=== PATIENT | male | born 1970 | race Caucasian/White ===

== ENCOUNTER → 2018-09-10 15:39 | Outpatient (CLI) | payer OTHER, SELFPAY ==
--- NOTE | 2018-09-10 15:42 | MR_ITS ---
MR shoulder LT wo con HISTORY:Left shoulder pain. Prior rotator cuff surgery, injury with pain and limited range of motion ITS.REASON: LEFT SHOULDER PAIN ORDERING PHYSICIAN: Art Arenas PATIENT AGE: 48 years Comparison: None TECHNIQUE: Standard multiplanar multiecho sequences are performed without contrast. FINDINGS: There are no previous exams available for comparison. There is acromioclavicular arthropathy with hypertrophic changes at the acromioclavicular joint and small amount of bone marrow edema at the AC joint. There is thickening of the supraspinatus tendon. A full-thickness tear is not identified. There is some increased T2 signal along the undersurface of supraspinatus tendon and distally which could represent a partial tear. The infraspinatus tendon appears intact. Bicipital tendon is in place. The subscapularis and teres minor tendons are intact. There does appear to be a tear of the mid and inferior aspect of the labrum. Osteoarthritic changes are present at the glenohumeral joint with subarticular cyst of the glenoid at 3:00. Artifact is present from a screw within the proximal humerus laterally at the base of the greater tuberosity IMPRESSION: 1. Acromioclavicular arthropathy with edema at the AC joint. 2. Tendinopathy/tendinosis of the supraspinatus tendon with possible partial tear. No evidence of full-thickness or complete tear. 3. There may be a tear of the anterior glenoid labrum inferiorly beginning from 3-6 o'clock region. MR arthrography could confirm if clinically desired. 4. Postsurgical changes with osteoarthritis of the glenohumeral joint
== END ==
PROVIDERS: Visit Provider Orthopaedic Surgery Adult Reconstructive Orthopaedic Surgery
DX: M75.122 Complete rotator cuff tear or rupture of left shoulder, not specified as traumatic (principal)
CPT/HCPCS: 73221

== ENCOUNTER 2018-11-08 08:30 | Outpatient (RCR) | payer OTHER, SELFPAY | END 2018-11-08 08:35 | disposition home or self-care (01) | LOC: PT 08:30 | PROVIDERS: Referring Provider Orthopaedic Surgery Adult Reconstructive Orthopaedic Surgery; Visit Provider Orthopaedic Surgery Adult Reconstructive Orthopaedic Surgery | DX: M25.512 Pain in left shoulder (principal) | CPT/HCPCS: 97010; 97033; 97110; 97140; 97163; 97164 ==

== ENCOUNTER 2019-05-27 08:30 | Outpatient (RCR) | payer OTHER, SELFPAY | END 2019-05-27 08:35 | disposition home or self-care (01) | LOC: PT 08:30 | PROVIDERS: Visit Provider Orthopaedic Surgery Adult Reconstructive Orthopaedic Surgery | DX: M75.102 Unspecified rotator cuff tear or rupture of left shoulder, not specified as traumatic (principal) | CPT/HCPCS: 97033; 97110; 97140; 97163; 97164 ==

== ENCOUNTER 2020-11-04 19:15 | Emergency (ER) | payer SELFPAY ==
[2020-11-04 19:15] VITALS: BP 138/93; PULSE 87; RESP 20; TEMP 36.6; O2SAT 96; BMI 29.3
[2020-11-04 19:35] VITALS: BP 138/93; PULSE 87; RESP 20; TEMP 36.6; O2SAT 96
--- NOTE | 2020-11-04 19:35 | HMH.EDUTC ---
[facility] [place] Disposition Clinical Impression: Abscess Cellulitis Qualifiers: Site of cellulitis: unspecified site Qualified Code(s): L03.90 - Cellulitis, unspecified Disposition: Home, Self-Care Condition on Discharge: Good Instructions: Trimethoprim/Sulfamethoxazole (Alternative Therapy), Cellulitis, Cephalexin, Mupirocin, DI for Skin Abscess Additional Instructions: *Start antibiotic(s) immediately and be sure to take as ordered for the FULL length of time although you may be feeling better or start to see improvement in the next 24-48 hours *Monitor closely. Outlined redness so that you can monitor easier. Follow up immediately for new or worsening symptoms including but not limited to redness, swelling, streaking from site fever or chills. *Warm compress 15 minutes 3-4 times day *Never squeeze or pop these on your own. Seek immediate medical attention next time this occurs *Monitor Temp. Tylenol every 4 hours as needed and ibuprofen every 6 hours as needed (as long as your primary care doctor has told you that it is ok to take both. or you are not allergic For fever, aches, pain. ER if no less that 101 despite Tylenol and ibuprofen Follow up with your family doctor/primary care physician in the next 48-72 hours if no improvement Follow up immediately if any worsening of redness or swelling Follow up in 48 hours for your wound culture result Straight to ER if any life threatening symptoms Prescriptions: Sulfamethoxazole/Trimethoprim [Bactrim DS tablet] 1 each PO BID 10 Days #20 tab Transmission Status: Pending to [email or web address] # cephALEXin [cephALEXin 500mg capsule*] 500 mg PO Q6H 10 Days #40 cap Transmission Status: Pending to [email or web address] # Mupirocin Calcium [Mupirocin 2% Cream 15gm] 1 applicatio TP TID 10 Days #1 tube Transmission Status: Pending to [email or web address] # Referrals: Provider,Referral, [Primary Care Provider] - Time of Disposition: 19:38 Medical Decision Making - Fredis Inquiry Pt receiving controlled substance: No Fredis was queried for this patient: No Vital Signs: 11/04/20 19:15 11/04/20 19:35 Temperature 97.8 F 97.8 F Temperature Source Oral Pulse Rate 87 Pulse Rate [Right Brachial] 87 Respiratory Rate 20 20 Blood Pressure 138/93 H Blood Pressure [Right Arm] 138/93 H Blood Pressure Mean [Right Arm] 108 Blood Pressure Source [Right Arm] Automatic Cuff Blood Pressure Position [Right Arm] Sitting 02 Sat by Pulse Oximetry 96 Oxygen Delivery Method Room Air Orders (Tests/Meds): ORDERS Category Date Time Status Wound Culture and Gram Stain Stat Micro 11/04/20 19:30 Ordered Medical Decision Narrative: Patient states that he has taken both Cephalexin and bactrim before without reaction or complications discount card printed for medication and patient educated to watch for streaks and worsening of redness and swelling and patient verbalized understanding [facility] [place] HPI - General Stated complaint: possible Spidle bite R Arm Time Seen by Provider: 11/04/20 19:20 Mode of Arrival: Ambulatory Source of Information: Patient Limitations: No Limitations Description of Symptoms (Recalled from Triage Doc. by RN): PATIENT C/O POSSIBLE SPIDER BITES X 2 TO RIGHT FOREARM. REDNESS, WARMTH AND SWELLING NOTED HEENT Symptoms (Recalled from RN notes): No Resp Symptoms (Recalled from RN notes): No Skin Symptoms (Recalled from RN notes): Yes MS Symptoms (Recalled from RN notes): No Functional Status (Recalled from RN notes): WNL - History of Present Illness Provider Complaint: Patient states that he noticed two areas on his right forearm that looked like spider bites States that he was outside playing with grandkids States he has been using peroxide and triple antibiotic ointment on it and it has continued to get worse States that tonight it was more red and swollen States that he tried to mash it and got pus and blood out of it but still having redness and swelling
--- NOTE | 2020-11-04 20:11 | PC.NURSE ---
PATIENT CALLED STATING PHARMACY WAS CLOSED. ADVISED BY Maycol BATES APRN TO RETURN TO [facility] TO GET FIRST DOSE ON ANTIBIOTICS TONIGHT.
--- NOTE | 2020-11-07 09:44 | PC.NURSE ---
attempted to call pt about positive mrsa results
== END 2020-11-04 19:40 | disposition home or self-care (01) ==
PROVIDERS: Emergency Provider Nurse Practitioner
DX: S50.861A Insect bite (nonvenomous) of right forearm, initial encounter (principal); L03.113 Cellulitis of right upper limb; Z88.5 Allergy status to narcotic agent; Z88.8 Allergy status to other drugs, medicaments and biological substances
CPT/HCPCS: 87070; 87077; 87186; 87205; 99202; G0463

== ENCOUNTER → 2020-11-04 20:23 | Outpatient (CLI) | payer SELFPAY ==
[2020-11-04 20:25] VITALS: BMI 29.3
== END ==
PROVIDERS: Visit Provider Nurse Practitioner
DX: L03.90 Cellulitis, unspecified (principal)

== ENCOUNTER → 2021-06-22 10:44 | Outpatient (CLI) | payer OTHER, SELFPAY ==
--- NOTE | 2021-06-22 11:02 | XR_ITS ---
FINAL REPORT CLINICAL HISTORY: L Shoulder Pain no recent injury , pain x 2 1/2 years FINDINGS: LEFT SHOULDER Three views demonstrate no acute fracture or dislocation. There are mild degenerative changes of the acromioclavicular and glenohumeral joints. The visualized bony structures are well aligned. No soft tissue abnormality is seen. IMPRESSION: Mild degenerative change as described. Reviewed, Interpreted and Dictated by Oscar Good III, MD Transcribed by Traci Lambert Authenticated by Oscar Good III, MD on 06/22/2021 12:21:08 PM [facility]
[2021-06-22 11:15] LABS: Basophils # 0.1 K/mm3 (0-0.2); Basophils % 1.7 % (0.1-2.0); Eosinophils # 0.1 K/mm3 (0.0-0.4); Eosinophils % 2.5 % (0.1-12.0); Hematocrit 51.3 % (42.0-52.0); Hemoglobin 17.5 g/dL (14.1-18.0); Lymphocytes # 1.3 K/mm3 (0.7-4.5); Lymphocytes % 27.1 % (10-50); Mean Corpuscular HGB Conc 34.2 g/dL (31.8-35.4); Mean Corpuscular Hemoglobin 30.2 pg (27.0-31.2); Mean Corpuscular Volume 88.3 fl (80-94); Mean Platelet Volume 7.8 fl (7.4-10.4); Monocytes # 0.4 K/mm3 (0.1-1.0); Monocytes % 8.4 % (1.7-9.3); Neutrophils # 2.9 K/mm3 (1.8-7.8); Neutrophils % 60.4 % (37.0-80.0); Platelet Count 251 K/mm3 (142-424); Red Blood Count 5.81 M/mm3 (4.60-6.20); Red Cell Distribution Width 13.3 % (11.5-17.5); White Blood Count 4.8 K/mm3 (4.8-10.8)
[2021-06-22 14:45] LABS: Alanine Aminotransferase 44 U/L (12-78); Albumin Level 4.3 g/dl (3.5-5.0); Albumin/Globulin Ratio 1.7 (1.1-1.8); Alkaline Phosphatase 73 U/L (38-126); Anion Gap 10.6 mEq/L (5-15); Aspartate Amino Transferase 51 U/L (17-59); Bilirubin,Total 0.6 mg/dl (0.2-1.3); Blood Urea Nitrogen 16 mg/dl (9-20); Calcium 9.3 mg/dl (8.4-10.2); Carbon Dioxide 27 mmol/L (22.0-30.0); Chloride 102 mmol/L (98-107); Chol/HDL Ratio 3.6 (1-3.5); Cholesterol 153 mg/dl (140-200); Estimated Glomerular Filt Rate 89 ml/min (>60); GFR (African American) 108 ML/MIN (>60); Globulin 2.6 g/dL (1.3-3.2); Glucose 97 mg/dl (74-100); HDL Cholesterol 42 mg/dl (40-60); Potassium 4.6 mmoL/L (3.5-5.1); Sodium 135 mmol/L (136-145); Total Protein,Serum 6.9 g/dl (6.3-8.2); Triglycerides 80 mg/dl (30-150); VLDL Cholesterol 16 mg/dL (0-40)
[2021-06-22 14:58] LABS: Direct LDL Cholesterol 90.52 mg/dL (100-129)
[2021-06-22 15:04] LABS: T4 (Thyroxine) 18.2 ug/dl (5.53-11.0)
[2021-06-22 15:18] LABS: Thyroid Stimulating Hormone 2.22 uIU/mL (0.465-4.68)
== END ==
PROVIDERS: PCP Nurse Practitioner Family; Visit Provider Nurse Practitioner Family
DX: Z76.89 Persons encountering health services in other specified circumstances (principal); M25.512 Pain in left shoulder
CPT/HCPCS: 36415; 73030; 80053; 80061; 82306; 84436; 84443; 85025

== ENCOUNTER 2021-07-08 14:38 | Emergency (ER) | payer OTHER, SELFPAY ==
[2021-07-08 14:40] VITALS: BP 141/86; PULSE 82; RESP 18; TEMP 36.6; O2SAT 98; BMI 29.5
--- NOTE | 2021-07-08 15:16 | HMH.EDUTC ---
[facility] [place] Clinical Impression: Contusion Qualifiers: Encounter type: initial encounter Contusion area: lower back Qualified Code(s): S30.0XXA - Contusion of lower back and pelvis, initial encounter Low back pain Qualifiers: Chronicity: acute Back pain laterality: right Sciatica presence: with sciatica Sciatica laterality: sciatica of right side Qualified Code(s): M54.41 - Lumbago with sciatica, right side Disposition: Home, Self-Care Condition on Discharge: Good Instructions: DI for Contusion Additional Instructions: Go home and rest. It would be best if you rested tomorrow too. No heavy lifting. No twisting. Take the oral medications as directed. The muscle relaxer (cyclobenzaprine--Flexeril) will make you drowsy, so don't drive or operate heavy machinery after taking it. Don't start the oral steroids (medrol dose pack) until tomorrow, since you had the shots in here today. Follow up with your regular doctor. GO TO THE ER FOR ANY WORSENING SYMPTOMS OR CONCERN, ESPECIALLY BOWEL OR BLADDER ISSUES, SADDLE AREA NUMBNESS, FEVER, ETC Prescriptions: Cyclobenzaprine HCl [Cyclobenzaprine 10mg Tab] 10 mg PO BIDP PRN #20 tab PRN Reason: Muscle Spasm Transmission Status: Received by [facility] methylPREDNISolone [Medrol] 4 mg PO DIRECTED 6 Days #21 packet Transmission Status: Received by [facility] Referrals: Bassem Owen APRN [Primary Care Provider] - Time of Disposition: 15:50 Medical Decision Making - Medical Records Medical records reviewed: No: I reviewed the patient's medical records. - Fredis Inquiry Pt receiving controlled substance: No Vital Signs: 07/08/21 14:40 07/08/21 15:39 Temperature 97.8 F 97.8 F Temperature Source Oral Pulse Rate 82 Pulse Rate [Right Brachial] 82 Respiratory Rate 18 18 Blood Pressure 141/86 H Blood Pressure [Right Arm] 141/86 H Blood Pressure Mean [Right Arm] 104 Blood Pressure Source [Right Arm] Automatic Cuff Blood Pressure Position [Right Arm] Sitting 02 Sat by Pulse Oximetry 98 Oxygen Delivery Method Room Air Orders (Tests/Meds): ED MEDICATIONS Discontinued Medications Generic Name Dose Route Start Last Admin Trade Name Freq PRN Reason Stop Dose Admin Ketorolac Tromethamine 60 mg 07/08/21 15:24 07/08/21 15:34 Ketorolac 60mg/2ml Vial IM 07/08/21 15:25 60 mg ONCE ONE Administration Methylprednisolone Sodium Succinate 125 mg 07/08/21 15:24 07/08/21 15:34 Methylprednisolone Sod Succ 125mg Vial IM 07/08/21 15:25 125 mg ONCE ONE Administration [facility] [place] HPI - General Stated complaint: AO 2/2 back injury Time Seen by Provider: 07/08/21 15:16 Mode of Arrival: Ambulatory Source of Information: Patient Limitations: No Limitations Description of Symptoms (Recalled from Triage Doc. by RN): PATIENT C/O LOWER BACK PAIN AFTER HITTING IT ON A BOARD WHILE WORKING UNDER A HOUSE ON SUNDAY HEENT Symptoms (Recalled from RN notes): No Resp Symptoms (Recalled from RN notes): No Skin Symptoms (Recalled from RN notes): No MS Symptoms (Recalled from RN notes): Yes Functional Status (Recalled from RN notes): WNL - History of Present Illness Provider Complaint: He states that 3 days ago he was crawling in the crawl space beneath his house when he bumped his back on a board. Since then he has had low back pain that radiates down his right leg. He has a history of low back pain and sciatica and he states that this feels like it has flared up his sciatica now. He denies any bowel or bladder issues. - Related Data Home Medications Medication Instructions Recorded Confirmed Loratadine [Allergy] 10 mg PO DAILY 07/08/21 07/08/21 Previous Rx's Medication Instructions Recorded Cyclobenzaprine HCl 10 mg PO BIDP PRN #20 tab 07/08/21 [Cyclobenzaprine 10mg Tab] methylPREDNISolone [Medrol] 4 mg PO DIRECTED 6 Days #21 07/08/21 packet Allergies Allergy/AdvReac Type Kari
[2021-07-08 15:39] VITALS: BP 141/86; PULSE 82; RESP 18; TEMP 36.6; O2SAT 98
== END 2021-07-08 15:53 | disposition home or self-care (01) ==
PROVIDERS: Emergency Provider Nurse Practitioner Family; PCP Nurse Practitioner Family
DX: S30.0XXA Contusion of lower back and pelvis, initial encounter (principal); W22.8XXA Striking against or struck by other objects, initial encounter; F17.210 Nicotine dependence, cigarettes, uncomplicated
CPT/HCPCS: 96372; 99202; G0463

== ENCOUNTER → 2021-08-03 07:57 | Outpatient (CLI) | payer OTHER, SELFPAY ==
--- NOTE | 2021-08-03 08:09 | XR_ITS ---
FINAL REPORT CLINICAL HISTORY: lt wrist pain FINDINGS: 3 views of the left wrist were obtained. There is no acute fracture or dislocation. There is mild degenerative change in the radial aspect of the wrist. There is no soft tissue abnormality. IMPRESSION: Mild degenerative change. Reviewed, Interpreted and Dictated by Oscar Good III, MD Transcribed by Kristian Hernandez Authenticated by Oscar Good III, MD on 08/03/2021 09:28:24 AM [facility]
== END ==
PROVIDERS: PCP Nurse Practitioner Family; Visit Provider Orthopaedic Surgery
DX: M25.532 Pain in left wrist (principal)
CPT/HCPCS: 73110

== ENCOUNTER 2021-08-05 09:00 | Outpatient (RCR) | payer OTHER, SELFPAY ==
--- NOTE | 2021-06-28 12:24 | HMH.OTOPEV ---
OT Inpatient Evaluation Rehab OT Outpatient Eval Start: 06/28/21 12:13 Freq: Status: Active Protocol: Document 06/28/21 12:13 RMARSHALL (Rec: 06/28/21 12:24 [id number]) Electronically Signed By Gerald Lynn OT 06/28/21 12:13 Outpatient Therapy Subjective History Subjective History Pt is a 50 year old male who returns to therapy for left shoulder evaluation. He has been seen previously multiple times following shoulder surgeries. Pt reports he had his first RTC repair in May 2018 and his second one in January of 2019 at left shoulder. Pt reports he continued to have significant pain and decreased AROM/ Strength at left shoulder. Therapist observes a bulge in his bicep area indicitive of a tear of his biceps tendon ( Thelma deformity/ thelma sign) . Pt reports he does not recall a specific injury causing this to happen. Pt noticed this deformity in July 2019. As of today, pt demosntrates with decreased AROM and strength. He also complains of constant pain at left shoulder. Pt has not seeked an ortho consult at this time. Therapist recommends he does see an ortho for possible surgical intervention. Pt will continue to be seen twice a week in order to address left shoulder deficits. Chief Complaint Pain,Stiff,Weakness Symptom Type Ache,Throb,Sharp,Dull,Numbness Symptoms Relieved By Nothing Symptoms Aggravated By Physical Activity,Lifting Prior Functional Limitations None Current Functional Limitations Reaching,Lifting,Housework, Driving,Sleeping,Recreation Activity Symptom Description Constant but Variable Level of pain today (0-10) 8 Pain scale - at its best (0-10) 5 Pain scale - at its worst (0-10) 8 Shoulder/Elbow Eval Shoulder Objective Measurements Shoulder ROM Left
== END 2021-08-05 09:05 | disposition home or self-care (01) ==
LOC: OT 09:00
PROVIDERS: PCP Nurse Practitioner Family; Visit Provider Nurse Practitioner Family
DX: M25.512 Pain in left shoulder (principal); Z98.890 Other specified postprocedural states
CPT/HCPCS: 97110; 97140; 97166

== ENCOUNTER → 2021-08-10 09:12 | Outpatient (CLI) | payer OTHER, SELFPAY ==
--- NOTE | 2021-08-10 09:17 | MR_ITS ---
FINAL REPORT CLINICAL HISTORY: LEFT SHOULDER PAIN, LIMITED ROM, PRIOR SURGERY IN 2018. PT STATES THAT BICEP MUSCLE HAS DROPPED SINCE SURGERY. NO NEW INJURY COMPARISON: 09/10/2018 FINDINGS: Multiplanar MR imaging of the left shoulder was performed after the intra-articular injection of dilute gadolinium solution. There are postoperative changes from rotator cuff repair. Contrast is seen in the infraspinatus tendon, may represent postoperative change. There is irregularity at the undersurface of the distal supraspinatus tendon. No full-thickness rotator cuff tear is identified. Findings are favored to represent postoperative change. There is no evidence of contrast leakage from the glenohumeral joint to the subacromial/subdeltoid bursa. There is mild a.c. joint arthrosis. There is contrast at the base of the superior and anterior labrum consistent with a SLAP tear extending to the anterior labrum. Findings are worse since prior. The long head of the biceps tendon is not seen, likely torn versus biceps tenotomy. There is a subchondral cyst in the anterior glenoid. There is no evidence of fracture. The musculature is intact. No soft tissue mass or cyst is identified. IMPRESSION: No full-thickness rotator cuff tear identified. Findings consistent with a SLAP tear extending to the anterior labrum, worse since prior. Complete biceps tendon tear versus biceps tenotomy. Reviewed, Interpreted and Dictated by Oscar Good III, MD Transcribed by Fabi Oshea Authenticated by Oscar Good III, MD on 08/10/2021 11:31:05 AM [facility]
--- NOTE | 2021-08-10 09:17 | IR_ITS ---
FINAL REPORT CLINICAL HISTORY: shoulder pain fluoro time-0.49 FINDINGS: Arthrogram Left shoulder injection for MRI arthrogram HISTORY: Left shoulder pain. PROCEDURE: After informed consent was obtained, a time-out was performed. Utilizing local anesthesia and sterile technique, with direct fluoroscopic guidance, access to the joint was obtained . A small amount of contrast was injected to confirm needle tip location. Additional gadolinium contrast was injected. IMPRESSION: Status post injection for MRI arthrogram without immediate complication. Please see MRI report. FLUOROSCOPY TIME: 0.49 minutes Reviewed, Interpreted and Dictated by Oscar Good III, MD Transcribed by CRISTINE Connell Authenticated by Oscar Good III, MD on 08/10/2021 11:29:04 AM [facility]
== END ==
PROVIDERS: PCP Nurse Practitioner Family; Visit Provider Orthopaedic Surgery
DX: M25.512 Pain in left shoulder (principal)
CPT/HCPCS: 73040; 73222; Q9967

== ENCOUNTER → 2021-08-17 15:35 | Outpatient (CLI) | payer OTHER, SELFPAY ==
[2021-08-17 13:58] LABS: Barbiturates Screen,Urine Negative ng/ml (<200)
[2021-08-17 13:59] LABS: Benzodiazepines Screen,Urine Negative ng/ml (<200); Cannabinoid Screen,Urine Positive ng/ml (<50)
[2021-08-17 14:00] LABS: Cocaine Screen,Urine Negative ng/ml (<300); Methadone Screen,Urine Negative ng/ml (<300)
[2021-08-17 14:01] LABS: Opiate Screen,Urine Negative ng/ml (<300)
[2021-08-17 14:02] LABS: Phencyclidine Screen,Urine Negative ng/ml (<25)
[2021-08-17 14:48] LABS: Amphetamine/Metha Screen,Urine Positive ng/ml (<1000)
== END ==
PROVIDERS: Visit Provider Nurse Practitioner Family
DX: N23 Unspecified renal colic (principal)
CPT/HCPCS: 80305; 87086

== ENCOUNTER → 2021-08-20 11:36 | Outpatient (CLI) | payer OTHER, SELFPAY ==
[2021-08-20 12:07] LABS: Basophils # 0.1 K/mm3 (0-0.2); Basophils % 0.9 % (0.1-2.0); Eosinophils # 0.1 K/mm3 (0.0-0.4); Eosinophils % 0.5 % (0.1-12.0); Hematocrit 55.8 % (42.0-52.0); Lymphocytes # 1.2 K/mm3 (0.7-4.5); Mean Corpuscular HGB Conc 32.6 g/dL (31.8-35.4); Mean Corpuscular Hemoglobin 29.7 pg (27.0-31.2); Mean Platelet Volume 8.9 fl (7.4-10.4); Monocytes # 0.6 K/mm3 (0.1-1.0); Monocytes % 4.7 % (1.7-9.3); Neutrophils # 11.5 K/mm3 (1.8-7.8); Neutrophils % 84.8 % (37.0-80.0); Platelet Count 331 K/mm3 (142-424); Red Blood Count 6.13 M/mm3 (4.60-6.20); Red Cell Distribution Width 14.2 % (11.5-17.5); White Blood Count 13.6 K/mm3 (4.8-10.8)
[2021-08-20 12:34] LABS: Alanine Aminotransferase 67 U/L (12-78); Albumin Level 4.4 g/dl (3.5-5.0); Albumin/Globulin Ratio 1.8 (1.1-1.8); Alkaline Phosphatase 84 U/L (38-126); Anion Gap 8.2 mEq/L (5-15); Aspartate Amino Transferase 63 U/L (17-59); Bilirubin,Total 0.8 mg/dl (0.2-1.3); Blood Urea Nitrogen 21 mg/dl (9-20); Calcium 9.5 mg/dl (8.4-10.2); Carbon Dioxide 32 mmol/L (22.0-30.0); Chloride 103 mmol/L (98-107); Estimated Glomerular Filt Rate 89 ml/min (>60); GFR (African American) 108 ML/MIN (>60); Globulin 2.4 g/dL (1.3-3.2); Glucose 121 mg/dl (74-100); Potassium 5.2 mmoL/L (3.5-5.1); Sodium 138 mmol/L (136-145); Total Protein,Serum 6.8 g/dl (6.3-8.2)
[2021-08-20 16:25] LABS: Hemoglobin 18.2 g/dL (14.1-18.0)
== END ==
PROVIDERS: PCP Nurse Practitioner Family; Visit Provider Orthopaedic Surgery
DX: Z01.818 Encounter for other preprocedural examination (principal); Z11.52 Encounter for screening for COVID-19
CPT/HCPCS: 36415; 80053; 85025; C9803; U0003; U0005

== ENCOUNTER → 2021-09-26 08:42 | Outpatient (CLI) | payer OTHER, SELFPAY ==
[2021-09-26 17:42] LABS: Basophils # 0.1 K/mm3 (0-0.2); Basophils % 1.3 % (0.1-2.0); Eosinophils # 0.1 K/mm3 (0.0-0.4); Eosinophils % 1.9 % (0.1-12.0); Hematocrit 51.3 % (42.0-52.0); Hemoglobin 17.2 g/dL (14.1-18.0); Lymphocytes # 1.5 K/mm3 (0.7-4.5); Lymphocytes % 21.2 % (10-50); Mean Corpuscular HGB Conc 33.5 g/dL (31.8-35.4); Mean Corpuscular Hemoglobin 29.9 pg (27.0-31.2); Mean Corpuscular Volume 89.3 fl (80-94); Mean Platelet Volume 8.7 fl (7.4-10.4); Monocytes # 0.5 K/mm3 (0.1-1.0); Neutrophils # 4.8 K/mm3 (1.8-7.8); Neutrophils % 68.6 % (37.0-80.0); Platelet Count 297 K/mm3 (142-424); Red Blood Count 5.74 M/mm3 (4.60-6.20); Red Cell Distribution Width 13.7 % (11.5-17.5)
[2021-09-29 07:21] LABS: Neisseria gonorrhoeae, NAA Negative (Negative)
== END ==
PROVIDERS: PCP Family Medicine; Visit Provider Family Medicine
DX: D72.829 Elevated white blood cell count, unspecified (principal)
CPT/HCPCS: 85025; 87491; 87591

== ENCOUNTER → 2021-12-10 11:00 | Outpatient (CLI) | payer OTHER, SELFPAY ==
--- NOTE | 2021-12-10 11:13 | ECG_ITS ---
APPROVED REPORT Exam: Resting ECG HR:88 bpm ECG Measurements Heart Rate [address] 151 P 0 QRSd 93 QRS 55 QT 339 T 62 QTc 385 Conclusion SINUS RHYTHM NORMAL ECG UNCONFIRMED REPORT Electronically signed by : Lior Goncalves MD 12/12/2021 14:05:58
[2021-12-10 11:24] LABS: Basophils # 0.1 K/mm3 (0-0.2); Basophils % 1.5 % (0.1-2.0); Eosinophils # 0.2 K/mm3 (0.0-0.4); Eosinophils % 3.1 % (0.1-12.0); Hemoglobin 17.9 g/dL (14.1-18.0); Lymphocytes # 1.9 K/mm3 (0.7-4.5); Lymphocytes % 25.3 % (10-50); Mean Corpuscular HGB Conc 35.9 g/dL (31.8-35.4); Mean Corpuscular Volume 83.5 fl (80-94); Mean Platelet Volume 7.3 fl (7.4-10.4); Monocytes # 0.6 K/mm3 (0.1-1.0); Monocytes % 7.7 % (1.7-9.3); Neutrophils # 4.7 K/mm3 (1.8-7.8); Neutrophils % 62.3 % (37.0-80.0); Platelet Count 235 K/mm3 (142-424); Red Blood Count 5.99 M/mm3 (4.60-6.20); Red Cell Distribution Width 13.1 % (11.5-17.5); White Blood Count 7.6 K/mm3 (4.8-10.8)
[2021-12-10 12:32] LABS: Alanine Aminotransferase 48 U/L (12-78); Albumin/Globulin Ratio 1.5 (1.1-1.8); Alkaline Phosphatase 82 U/L (38-126); Anion Gap 11.2 mEq/L (5-15); Aspartate Amino Transferase 51 U/L (17-59); Bilirubin,Total 0.4 mg/dl (0.2-1.3); Blood Urea Nitrogen 12 mg/dl (9-20); Calcium 9.4 mg/dl (8.4-10.2); Carbon Dioxide 29 mmol/L (22.0-30.0); Chloride 105 mmol/L (98-107); Estimated Glomerular Filt Rate 79 ml/min (>60); GFR (African American) 95 ML/MIN (>60); Globulin 2.6 g/dL (1.3-3.2); Glucose 87 mg/dl (74-100); Potassium 4.2 mmoL/L (3.5-5.1); Sodium 141 mmol/L (136-145); Total Protein,Serum 6.6 g/dl (6.3-8.2)
== END ==
PROVIDERS: PCP Family Medicine; Visit Provider Orthopaedic Surgery
DX: Z01.812 Encounter for preprocedural laboratory examination (principal); Z20.822 Contact with and (suspected) exposure to COVID-19; G56.02 Carpal tunnel syndrome, left upper limb
CPT/HCPCS: 36415; 80053; 85025; 93005; C9803; U0003; U0005

== ENCOUNTER 2021-12-12 11:27 | Day surgery (SDC) | payer OTHER, SELFPAY ==
[2021-12-12 12:18] VITALS: BP 129/85; PULSE 76; RESP 17; TEMP 36.7; O2SAT 96; BMI 25.7
[2021-12-12 15:04] VITALS: BP 107/67; PULSE 74; RESP 18; TEMP 36.1; O2SAT 96
[2021-12-12 15:19] VITALS: BP 121/72; PULSE 69; RESP 18; TEMP 36.1; O2SAT 96
--- NOTE | 2021-12-12 15:32 | HMH.OPNOTE ---
Date of procedure: 12/12/21 Pre-op Diagnosis:: 1. Carpal tunnel syndrome, left wrist 2. Rotator cuff syndrome, left shoulder 3. AC joint arthritis, left shoulder Post-op Diagnosis:: Same Procedure performed:: 1. Open rotator cuff release, left wrist 2. Subacromial steroid injection, left shoulder 3. AC joint steroid injection, left shoulder Surgeon:: Panda Nieves MD Log Yard Derrick Operator(s):: Analisa Toledo PA-C NETWORK MANAGEMENT SPECIALIST:: Other Anesthesia: MAC, local Estimated blood loss (mL): 2 Clinical Note:: Patient is a 51-year-old male with left carpal tunnel syndrome with long-standing symptoms. EMG/NCV results confirmed moderate carpal tunnel syndrome on the left side. Patient failed to respond adequately to conservative management. Therefore the carpal tunnel release surgery was necessary to relieve symptoms, preserve the remaining fibers of the median nerve, improve function and decrease the pain, paresthesias and weakness and to prevent permanent nerve damage. Patient also has chronic left shoulder pain and previously had shoulder surgery at an outside facility. He opted to have subacromial and AC joint steroid injections to his left shoulder at the time of his carpal tunnel surgery. Please refer to my office note for full details. Operative findings:: The intraoperative findings showed the median nerve to be very tightly compressed and hyperemic. The flexor retinaculum was noted to be thick and tight. There was mild synovitis in the carpal tunnel. There was no evidence of any space-occupying lesions within the carpal tunnel. Operative note:: On the day of the surgery the patient was met in the preoperative area. Patient was positively identified and the operative site was marked and initialed by me. A physical examination was performed and the chart was updated. I again discussed the procedure, risks and benefits and alternatives with the patient. The complications discussed include but are not limited to- bleeding, injury to nerves, blood vessels and tendons, infection, wound dehiscence, incomplete relief/continued pain, persistent numbness, palmar hypersensitivity, pillar pain, DVT/PE, complex regional pain syndrome(CRPS), worsening of nerve damage, failure of the condition to improve, incomplete return of function, bowstringing of tendons, weakness of hydrochloric manufacturing supervisor strength, recurrence, failure of the surgery to accomplish the desired goals, decreased use of the hand, loss of use of the arm, loss of the hand or arm, loss of life. Likely need for further surgery in the future has been discussed. I've indicated to the patient where the proposed incision would be made and also discussed the possibility of extending the incision if needed to accomplish an effective release. We have discussed how the goal of surgery is to protect the fibers which have remained healthy and hopefully reverse the symptoms of the fibers which are compromised but still recoverable. We have explained that, fibers that are permanently damaged will not recover. We have also discussed the anesthetic options which include local, regional and general. Patient expressed a preference for a regional Salix's block. Patient asked appropriate questions and all have been answered by me. Patient understood the risks, agreed to proceed with surgery, and no guarantees or assurances were given or implied. The patient was brought to the operating room and placed supine on the operating table. The left upper extremity was placed over a side table. All the bony prominences were well-padded. The patient had a MAC anesthesia administered by the hospice clinical manager. I first performed shoulder injections while patient was under anesthesia. Left subacromial and AC joint steroid injection: The skin over the left shoulder is prepped in a sterile fashion with multiple chlorhexidine sticks. A combination of 40 mg of Kenalog and 4 mL of 1% lidocaine injected into the left subacromial space under aseptic precautions. I then injected a
[2021-12-12 15:34] VITALS: BP 105/65; PULSE 71; RESP 18; TEMP 36.1; O2SAT 97
[2021-12-12 15:47] VITALS: BP 116/73; PULSE 65; RESP 18; TEMP 36.1; O2SAT 98
--- NOTE | 2021-12-13 07:31 | P.PN_ITS ---
[facility] [place] Anesthesia Checklist - Patient Identification Patient Identification: Arm Band - Structural Data Admitted From: Home Planned Operative Procedure/s: Carpal tunnel release Consent for Planned Operative Procedure(s) Verified: Yes - NPO Status Verified Time NPO: 00:00 - Additional verifications Anesthesia Reactions: No Hx Blood Transfusions: No Blood Transfusion Reaction: No - Airway Assessment C-Spine Mobility Assessed: Yes TMJ Mobility Assessed: Yes Dentition: Good Dentition - Neurological Assessment Level of Consciousness: Awake Hx Seizures: No Numbness or tingling in extremities: No - Anesthesia Plan Anesthesia Risk discussed: Yes Anesthesia Plan: Verified ASA Class: I Anesthesia Type: MAC [facility] History I have reviewed the patient's past medical history: Yes Medical History: Denies:: Cancer, Diabetes Mellitus Type 1, Diabetes Mellitus Type 2, Internal Pacemaker, MRSA, Seizures *Have you ever received a pneumonia vaccine?: No *Have you received a flu vaccine this season?: No Other Medical History: Reports: Arthritis. Denies: Blood Transfusion Reaction Anesthesia experience/problems:: None Laterality Cases: Left: Arthroscopy Shoulder, Other Other Surgeries: Yes: No Previous Surgery. No: Pacemaker Amputation: No Fractures: No - *Social History Last grade of school completed: 11th or 12th Smoking Status: Current every day smoker Tobacco Type: cigarettes # Packs/Day (cigarettes): 1 #Yrs smoked (if former smoker): 30 Alcohol Intake: former Substance Use Type: denies use *Occupational Status:: unemployed Housing: house Household Members: significant other *Travel in the last 8 weeks: None Family Hx:: Cancer, Heart Attack
== END 2021-12-12 15:47 | disposition home or self-care (01) ==
LOC: OR 11:29
PROVIDERS: PCP Family Medicine; Visit Provider Orthopaedic Surgery
PROC: (CPT 64721; principal; 2021-12-12 13:00)
DX: G56.02 Carpal tunnel syndrome, left upper limb (principal); M25.512 Pain in left shoulder; M19.012 Primary osteoarthritis, left shoulder
CPT/HCPCS: 64721; 20605; 20610; 96372; 96374; J2704

== ENCOUNTER 2021-12-15 18:43 | Emergency (ER) | payer OTHER, SELFPAY ==
--- NOTE | 2021-12-15 19:20 | PC.NURSE ---
checked on pt in the lobby. assessed pt and told him we would get him to a room soon, no acute distress noted.
[2021-12-15 19:30] VITALS: BP 00/00; PULSE 0; RESP 0; TEMP -17.7; TEMP 0
== END 2021-12-15 19:35 | disposition left against medical advice (07) ==
LOC: ER 19:24
PROVIDERS: Emergency Provider Emergency Medicine; PCP Family Medicine
DX: Z53.21 Procedure and treatment not carried out due to patient leaving prior to being seen by health care provider (principal)

== ENCOUNTER 2021-12-16 09:41 | Emergency (ER) | payer OTHER, SELFPAY ==
[2021-12-16 09:42] VITALS: BP 145/97; PULSE 69; RESP 16; TEMP 36.6; O2SAT 98; BMI 34.2
--- NOTE | 2021-12-16 09:46 | PC.NURSE ---
ED MD AT BEDSIDE FOR EVALUATION
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
--- NOTE | 2021-12-16 10:36 | PC.NURSE ---
PT STATES PAIN IS NOW 11/11
[2021-12-16 11:13] VITALS: BP 151/78; PULSE 78; RESP 16; TEMP 36.6; O2SAT 97
== END 2021-12-16 11:15 | disposition home or self-care (01) ==
PROVIDERS: Emergency Provider Emergency Medicine; PCP Family Medicine
DX: S13.4XXA Sprain of ligaments of cervical spine, initial encounter (principal); V89.2XXA Person injured in unspecified motor-vehicle accident, traffic, initial encounter; Z88.6 Allergy status to analgesic agent; M19.90 Unspecified osteoarthritis, unspecified site; Z72.0 Tobacco use
CPT/HCPCS: 96372; 96374; 99284

== ENCOUNTER 2021-12-22 07:55 | Outpatient (RCR) | payer OTHER, SELFPAY ==
--- NOTE | 2021-12-22 09:03 | HMH.OTOPEV ---
OT Inpatient Evaluation Rehab OT Outpatient Eval Start: 12/22/21 08:41 Freq: Status: Active Protocol: Document 12/22/21 08:41 TEETEEJERRY (Rec: 12/22/21 09:03 REA [id number]) Electronically Signed By Charisma Mckeon, OT 12/22/21 08:41 Outpatient Therapy Subjective History Subjective History 51 year old male referred to skilled OP OT services for left shoulder pain. Patient has had 2 surgeries on the left shoulder since 2018. Patient stated to have a bicep repair and DCE from [id number] . However Patient recently recieved CTR on the left wrist and subacrominal steriod injection and AC joint infection on 12/12/21 and during OT evaluation, Patient still has sutures in his wrist and unable to participate in exer task of griping or grasp any equipment for shoulder exercises. OT consulted with patient to wait additional week for sutures to be removed from wrist and possibly start gentle exer or stretching to shoulder. Chief Complaint Pain,Weakness Symptom Type Ache Symptoms Relieved By OTC Meds Symptoms Aggravated By Physical Activity Prior Functional Limitations None Current Functional Limitations Reaching,Lifting,Recreation Activity Symptom Description Constant and Continuous Level of pain today (0-10) 10 Pain scale - at its best (0-10) 10 Pain scale - at its worst (0-10) 10 Shoulder/Elbow Eval Shoulder Objective Measurements Shoulder ROM Left Shoulder Abduction Active Range of 90 Motion (degrees) Shoulder Flexion Active Range of Motion 100 (degrees) Query Text: Shoulder External Rotation Active Range 80 of Motion (degrees) Shoulder Internal Rotation Active Range 60 of Motion (degrees) pain with active ROM shoulder exam left standard Shoulder MMT Shoulder Abduction Strength Grade 3- Fair- Shoulder Flexion Strength Grade 3- Fair- Shoulder Horizontal Abduction Strength 3- Fair- Grade Shoulder Horizontal Adduction Strength 3- Fair- Grade Infraspinatus/Teres Minor Stren
== END 2021-12-22 07:59 | disposition home or self-care (01) ==
LOC: OT 07:55
PROVIDERS: PCP Family Medicine; Visit Provider Orthopaedic Surgery
DX: M25.512 Pain in left shoulder (principal)
CPT/HCPCS: 87070; 87077; 87186; 87205; 97165

== ENCOUNTER → 2022-01-18 13:17 | Outpatient (CLI) | payer OTHER, SELFPAY ==
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
== END ==
PROVIDERS: PCP Family Medicine; Visit Provider Family Medicine
DX: R51.9 Headache, unspecified (principal)
CPT/HCPCS: 72052

== ENCOUNTER 2022-03-07 11:00 | Outpatient (RCR) | payer OTHER, SELFPAY ==
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
--- NOTE | 2022-02-28 14:55 | HMH.RHREAS ---
Rehab Reassessment Rehab OP Re-assessment Start: 02/28/22 13:40 Freq: Status: Active Protocol: Document 02/28/22 13:40 RAYBUBBATrisha (Rec: 02/28/22 14:55 MARIE [id number]) E-signed By Bee Jordan PT Rehab Re-assessment Subjective Subjective Pt reports he has been sick which is why he hasn't returned to PT since his evaluation. Pt states he has noticed increased pain in the neck behind his left ear down his entire arm about 1 week ago. Pt reports pain is worse when he is sedentary and better with movement. Pt states he hasn't been performing his HEP like he should. Objective Objective Notes Cervical AROM: flex 32, ext 42 , RLF 37, LLF 35 (p!), R rot 56, L rot 48 LUE MMT: Shoulder: flex 4+/5, abd 3+/5, upper trap 4-/5 Elbow: flex 4/5, ext 4/5, ER 4 -/5, IR 4-/5 Wrist: flex 4/5, ext 4+/5 Assessment Progress Assessment No Progress Assessment Notes Pt has not attended follow-up visits since initial evaluation until this date; however, demonstrated improved cervical AROM in all planes with exception of flexion which regressed. Pt was encouraged to be consistent with PT attendance and HEP to assist with pain, paresthesia and overall function. Patient goals met ST/4 Goals Not Met STG & LTG Revised Goals n/a Plan Plan Continue initial POC Frequency of Therapy 2 Duration of therapy 4 Time and Billing Re-Eval Time 10 Re-Eval Billing Units 1 PHYSICIAN CERTIFICATION: I certify the specified therapy services for [facility] [employer] are required, authorized, and reviewed every 30 days.
== END 2022-03-07 11:05 | disposition home or self-care (01) ==
LOC: PT 11:00
PROVIDERS: Visit Provider Family Medicine
DX: M54.2 Cervicalgia (principal)
CPT/HCPCS: 97110; 97112; 97140; 97163; 97164; 97530; 97535

== ENCOUNTER 2022-06-22 23:36 | Emergency (ER) | payer OTHER, SELFPAY ==
--- NOTE | 2022-06-22 23:42 | PC.NURSE ---
called lab to notify PD is requesting legal lab draw on pt. Will notify when PD had completed their consent
[2022-06-22 23:45] VITALS: BP 143/95; PULSE 91; RESP 16; TEMP 36.8; O2SAT 97; BMI 26.9
--- NOTE | 2022-06-22 23:49 | HMH.EDMCLR ---
Discharge Plan Disposition Patient Disposition: Home, Self-Care Chief Complaint: Medical Clearance Prescriptions Prescriptions: No Action ibuprofen 800 mg tablet 800 mg PO Q8H Qty: 60 0RF cyclobenzaprine 10 mg tablet 10 mg PO TID PRN (Reason: muscle spasm) Qty: 60 10RF oxycodone 5 mg tablet 5 mg PO DAILY PRN (Reason: pain) Qty: 30 0RF prednisone 20 mg tablet 20 mg PO BID Qty: 14 0RF cyclobenzaprine 10 MG tablet 10 mg PO Q8HP PRN (Reason: Muscle Spasm) 3 Days Qty: 9 0RF Referrals Follow up/Referrals: Marlo Sanchez MD [Primary Care Provider] - See instructions Clinical Impressions Clinical Impression: Medical clearance for incarceration Discharge ED Provider: Manuel De Anda Medical Clearance HPI General Chief complaint: Medical Clearance Stated complaint: Medical Clearance & blood draw Time Seen by Provider: 06/22/22 23:49 Mode of Arrival: Ambulatory Source of Information: Patient and Medical Record Limitations: No Limitations Description of Symptoms (Recalled from ER Triage Doc. by RN): Pt here for medial clearance for presumed drug intoxication. History of Present Illness HPI Narrative: no specific c/o MD complaint: medical clearance requested Onset (ago): hour(s) Alleged Intoxication: Yes Traumatic Symptoms: denies traumatic injury Previous Rx's Medication Instructions Recorded cyclobenzaprine 10 mg tablet 10 mg PO Q8HP PRN Muscle Spasm 3 12/16/21 days #9 tabs ibuprofen 800 mg tablet 800 mg PO Q8H #60 tabs 12/22/21 cyclobenzaprine 10 mg tablet 10 mg PO TID PRN muscle spasm #60 01/10/22 tabs prednisone 20 mg tablet 20 mg PO BID #14 tabs 03/17/22 oxycodone 5 mg tablet 5 mg PO DAILY PRN pain #30 tabs 05/15/22 Allergies Allergy/AdvReac Type Severity Reaction Status Date / Time codeine [CODEINE] Allergy Unknown Verified 05/15/22 10:32 naproxen [NAPROXEN] Allergy Unknown NA-NAUSEA/V Verified 05/15/22 10:32 OMITING propoxyphene [PROPOXYPHENE] Allergy Unknown Verified 05/15/22 10:32 tramadol [TRAMADOL] Allergy Unknown Verified 05/15/22 10:32 [facility] Disclaimer: The information contained in this section may have been updated after the patient was seen, as this information can be updated by other users. Social History Smoking Status: Current every day smoker tobacco type: cigarettes packs per day: 1 second hand exposure: Yes alcohol intake: former substance use type: denies use current occupational status: unemployed Travel in the last 8 weeks: None household members: significant other housing: house caffeine: Yes ROS Obtained: Yes All systems reviewed & no additional complaints except as documented Physical Exam General General appearance: alert Head Head exam: normocephalic Eye Eye exam: Present PERRL and EOMI ENT ENT exam: Present mucous membranes moist Neck Neck exam: Present trachea midline Respiratory Respiratory exam: Absent respiratory distress Cardiovascular Cardiovascular exam: Present regular rate Abdominal Exam Abdominal exam: Present soft Extremities Exam Extremities exam: Present full ROM Neurological Exam Neurological exam: Present alert, oriented X3 and CN II-XII intact; Absent motor sensory deficit Psychiatric Psychiatric exam: Present normal affect Skin Skin exam: Absent rash Medical Decision Making Medical Records Medical records reviewed: Yes I reviewed the patient's medical records. Fredis Inquiry Pt receiving controlled substance: No Vital Signs: 06/22/22 23:45 Temperature 98.3 F Temperature Source Oral Pulse Rate [Right Radial] 91 H Respiratory Rate 16 Blood Pressure [Right Arm] 143/95 H Blood Pressure Mean [Right Arm] 111 Blood Pressure Source [Right Arm] Automatic Cuff Blood Pressure Position [Right Arm] Sitting 02 Sat by Pulse Oximetry 97 Oxygen Delivery Method Room Air Lab Data Lab results reviewed: Yes I reviewed the pa
[2022-06-23 00:05] VITALS: BP 140/90; PULSE 88; RESP 17; TEMP 36.8; O2SAT 97
== END 2022-06-23 00:11 | disposition home or self-care (01) ==
PROVIDERS: Emergency Provider Emergency Medicine; PCP Family Medicine
DX: Z00.8 Encounter for other general examination (principal); F17.210 Nicotine dependence, cigarettes, uncomplicated
CPT/HCPCS: 99283

== ENCOUNTER → 2022-10-09 13:55 | Outpatient (CLI) | payer OTHER, SELFPAY ==
--- NOTE | 2022-10-09 13:56 | MR_ITS ---
FINAL REPORT TECHNIQUE: Multiplanar MR without contrast CLINICAL HISTORY: Shoulder pain. LIMITED ROM FINDINGS: Marrow signal: Unremarkable Glenohumeral joint: Small effusion. Mild degenerative changes. AC joint: Moderate impingement on the rotator cuff. Mild hypertrophic changes. Rotator cuff: Severe tendinosis of the supraspinatus tendon with a partial-thickness tear distally. Remaining rotator cuff is intact. Labrum: Irregularity of the posterior inferior labral junction suspicious for a tear. Sublabral foramen of the anterior labrum and superior labrum are unremarkable. Biceps tendon: Intra-articular long head biceps tendon intact. IMPRESSION: Severe supraspinatus tendinosis with high-grade partial tear distally associated with rotator cuff impingement. Small tear of the posterior inferior labrum. Reviewed, Interpreted and Dictated by Florian Cartagena MD Transcribed by Karen De La O Authenticated and [facility]
== END ==
PROVIDERS: PCP Family Medicine; Visit Provider Family Medicine
DX: M25.511 Pain in right shoulder (principal)
CPT/HCPCS: 73221

== ENCOUNTER → 2022-10-20 13:33 | Outpatient (CLI) | payer OTHER, SELFPAY ==
--- NOTE | 2022-10-20 13:40 | XR_ITS ---
FINAL REPORT CLINICAL HISTORY: rt shoulder pain, no trauma COMPARISON: MRI 10/09/2022 FINDINGS: RIGHT SHOULDER Three views demonstrate no acute fracture or dislocation. Mild degenerative change of the acromioclavicular and glenohumeral joints. The visualized bony structures are well aligned. No soft tissue abnormality is seen. IMPRESSION: Degenerative changes without acute bony abnormality. Reviewed, Interpreted and Dictated by Oscar Good III, MD Transcribed by Juanis Ann Authenticated and [facility]
== END ==
PROVIDERS: PCP Family Medicine; Visit Provider Orthopaedic Surgery
DX: M25.511 Pain in right shoulder (principal)
CPT/HCPCS: 73030

== ENCOUNTER 2022-11-30 08:00 | Outpatient (RCR) | payer OTHER, SELFPAY | END 2022-11-30 08:05 | disposition home or self-care (01) | LOC: OT 08:00 | PROVIDERS: PCP Family Medicine; Visit Provider Orthopaedic Surgery | DX: M75.41 Impingement syndrome of right shoulder (principal) | CPT/HCPCS: 97016; 97035; 97110; 97140; 97165; 97530 ==

== ENCOUNTER → 2023-01-03 15:25 | Outpatient (CLI) | payer OTHER, SELFPAY ==
--- NOTE | 2023-01-03 | ECG_ITS ---
APPROVED REPORT Exam: Resting ECG HR:86 bpm ECG Measurements Heart Rate 86 AXES DC 150 P 72 QRSd 102 QRS 66 QT 360 T 70 QTc 403 Conclusion SINUS RHYTHM NORMAL ECG UNCONFIRMED REPORT Electronically signed by : Lior Goncalves MD 01/03/2023 20:14:35
--- NOTE | 2023-01-03 15:41 | XR_ITS ---
FINAL REPORT CLINICAL HISTORY: smoker COMPARISON: 06/12/2026 FINDINGS: TWO VIEW CHEST The heart size is normal. The mediastinum is normal. There is bronchial wall thickening worrisome for bronchitis there is no pneumothorax. IMPRESSION: Bronchial wall thickening worrisome for bronchitis. Reviewed, Interpreted and Dictated by Oscar Good III, MD Transcribed by Susannah Gerber Authenticated and . [facility]
[2023-01-03 15:54] LABS: Basophils % 0.5 % (0.1-2.0); Eosinophils # 0.3 K/mm3 (0.0-0.4); Hematocrit 47.9 % (42.0-52.0); Hemoglobin 15.9 g/dL (14.1-18.0); Lymphocytes # 1.4 K/mm3 (0.7-4.5); Lymphocytes % 17.1 % (10-50); Mean Corpuscular HGB Conc 33.2 g/dL (31.8-35.4); Mean Corpuscular Hemoglobin 29.1 pg (27.0-31.2); Mean Corpuscular Volume 87.9 fl (80-94); Mean Platelet Volume 7.7 fl (7.4-10.4); Monocytes # 0.5 K/mm3 (0.1-1.0); Monocytes % 5.8 % (1.7-9.3); Neutrophils # 6.2 K/mm3 (1.8-7.8); Neutrophils % 73.6 % (37.0-80.0); Platelet Count 254 K/mm3 (142-424); Red Blood Count 5.45 M/mm3 (4.60-6.20); Red Cell Distribution Width 13.4 % (11.5-17.5); White Blood Count 8.4 K/mm3 (4.8-10.8)
[2023-01-03 16:37] LABS: Chloride 105 mmol/L (98-107); Potassium 3.9 mmoL/L (3.5-5.1); Sodium 140 mmol/L (136-145)
[2023-01-03 16:39] LABS: Blood Urea Nitrogen 14 mg/dl (9-20); Estimated Glomerular Filt Rate 89 ml/min (>60); GFR (African American) 107 ML/MIN (>60)
[2023-01-03 16:40] LABS: Alanine Aminotransferase 72 U/L (12-78); Albumin Level 4.1 g/dl (3.5-5.0); Albumin/Globulin Ratio 1.5 (1.1-1.8); Alkaline Phosphatase 90 U/L (38-126); Anion Gap 11.9 mEq/L (5-15); Aspartate Amino Transferase 58 U/L (17-59); Bilirubin,Total 0.8 mg/dl (0.2-1.3); Calcium 9.2 mg/dl (8.4-10.2); Carbon Dioxide 27 mmol/L (22.0-30.0); Globulin 2.8 g/dL (1.3-3.2); Glucose 85 mg/dl (74-100); Total Protein,Serum 6.9 g/dl (6.3-8.2)
[2023-01-03 18:19] LABS: Hemoglobin A1C 5.3 % (4.0-6.0)
== END ==
PROVIDERS: PCP Family Medicine; Visit Provider Orthopaedic Surgery
DX: Z01.818 Encounter for other preprocedural examination (principal); M75.101 Unspecified rotator cuff tear or rupture of right shoulder, not specified as traumatic
CPT/HCPCS: 36415; 71046; 80053; 83036; 85025; 93005

== ENCOUNTER 2023-01-09 09:50 | Day surgery (SDC) | payer OTHER, SELFPAY ==
[2023-01-05 12:35] VITALS: BMI 25.3
[2023-01-09] VITALS (11 sets, daily range): BP systolic 124–153; BP diastolic 76–90; PULSE 72–85; RESP 15–18; TEMP 36.4–43; O2SAT 93–97
--- NOTE | 2023-01-09 10:51 | P.PNANES_ITS ---
[facility] Disclaimer: The information contained in this section may have been updated after the patient was seen, as this information can be updated by other users. Medical History Heart murmur Surgical History History of facial surgery History of shoulder surgery Family History Grandmother Family history of myocardial infarction Brother Family history of cancer Mother Family history of cancer Social History Smoking Status: Current every day smoker tobacco type: cigarettes packs per day: 1 second hand exposure: Yes alcohol intake: former substance use type: denies use current occupational status: disabled Travel in the last 8 weeks: None household members: significant other housing: house caffeine: Yes [facility] Anesthesia Checklist Patient Identification Patient Identification: Arm Band Structural Data Admitted From: Home Planned Operative Procedure/s: Right Shoulder Arthroscopy, Rotator Cuff Repair vs Debridement Consent for Planned Operative Procedure(s) Verified: Yes Verified Documents: Surgical Consent and History and Physical NPO Status Verified Time NPO: 00:00 Additional verifications Anesthesia Reactions: No Hx Blood Transfusions: No Blood Transfusion Reaction: No Airway Assessment Mallampati Score:: Class II C-Spine Mobility Assessed: Yes TMJ Mobility Assessed: Yes Dentition: Dentures-good fit (Pt states that his dentures are glued in. Discussed risks of dentures staying in during procedure. Pt verbalized understanding) Neurological Assessment Level of Consciousness: Awake and Alert Anesthesia Plan Anesthesia Risk discussed: Yes Anesthesia Plan: Verified ASA Class: II Anesthesia Type: General w/block (Right Interscalene Nerve Block. Risks/benefits explained. Pt verbalized understanding)
--- NOTE | 2023-01-09 12:50 | P.PNANES_ITS ---
[facility] Anesthesia Record Part I Anesthesia Record I Intake, IV Amount: 600 Hydration: Adequate Estimated blood loss (mL): 10 Urine output (mL): 0 Blood Products used (#): none Blood Pressure: 138/78 SaO2: 93 Pulse Rate: 83 Airway Patency: Patent Respiratory Rate: 18 Temperature: 97.7 F Pain scale (0-10): 0 Nausea: No Vomiting: No Patient is:: Drowsy and Stable Stable to PACU at:: 12:40
--- NOTE | 2023-01-09 12:54 | EXP.OP.NOTE ---
Date of procedure: 01/09/23 Pre-op Diagnosis:: Right shoulder partial-thickness rotator cuff tear with biceps tendinopathy and impingement. Post-op Diagnosis:: Right shoulder partial-thickness rotator cuff tear with biceps tendinopathy and impingement. Procedure performed:: Right shoulder arthroscopy with extensive debridement to include biceps tenotomy and rotator cuff debridement on the articular and bursal surfaces. Also arthroscopic subacromial decompression. 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 History of a left shoulder scope by Dr. Arenas in 2018. He has a left arm long head biceps tendon tear with Ufad deformity. He takes hydrocodone, ibuprofen and cyclobenzaprine. No significant relief with a right shoulder subacromial cortisone injection in October or physical therapy. At this point he is a reasonable candidate for right shoulder arthroscopy with rotator cuff debridement versus repair. I discussed all the risks, benefits and alternatives to surgery and he agrees to proceed. He understands risk to include but are not limited to infection, pain, stiffness failure of the repair to heal, retear, neurovascular injury and medical risks associated with surgery. He understands the long rehab course involved. Surgical consent form was signed. Operative findings:: Partial-thickness tear articular sided supraspinatus less than 50%. Subacromial impingement with subacromial spur. No significant bursal sided tear. Severe biceps tendinopathy with partial tearing. Operative note:: The patient was seen in the preoperative holding area. The right shoulder was marked to confirm the correct operative site. He was seen by anesthesia. Interscalene block was performed for perioperative pain control. He received Ancef 2 g IV prophylactic antibiotics within 1 hour incision time. He was brought back to the OR. General anesthesia induced without difficulty. He was placed in the lateral decubitus position and held in place with a beanbag. Axillary roll was placed. He was placed in the Acufex arm dick with 15 pounds of traction. Right upper extremity was prepped and draped in usual sterile fashion. Timeout was performed to confirm right shoulder arthroscopy on patient [facility] [employer]. I made a posterior lateral viewing portal with an 11 blade scalpel. Arthroscope was introduced into the shoulder joint. I then made an anterior superior portal localizing this with a spinal needle. This incision was made with an 11 blade and dilated with a trocar. Diagnostic arthroscopy commenced. He was seen to have significant fraying and tendinopathy of the long head biceps tendon. We decided to proceed with a biceps tenotomy. I placed a 5.5 mm trocar over a switching stick through the anterior portal. Through this portal we then performed a biceps tenotomy using the electrocautery wand to release the biceps from the superior labrum. We then debrided the labrum with a 4.0 mm shaver back to smooth stable border. Minimal partial-thickness tearing of the subscapularis debrided with a shaver. Diffuse fraying of the undersurface of the supraspinatus and infraspinatus debrided with a shaver back to a smooth stable border. There was no significant surface tear and no full-thickness tear seen. Minimal chondromalacia of the glenohumeral joint. At this time the arthroscope was redirected into the subacromial space. Lateral portal was established. He was seen to have diffuse bursitis of the subacromial space. A bursectomy was performed using combination of electrocautery wand and shaver. Edges of the acromion were well-defined. He had a large anterior subacromial spur. This was treated with a subacromial decompression with a
--- NOTE | 2023-01-10 10:35 | P.PNANES_ITS ---
[facility] Anesthesia Record Part II Anesthesia Record Part II Discharge Time: 13:10 Destination: Surgical Day Care (OP Surgery) PACU nurse assessment reviewed?: Yes Patient Condition:: Good Anesthesia Complications:: None Swallowing reflex intact?: Yes Airway Patency: Patent Cyanosis?: No Blood Pressure: 140/79 SaO2: 95 Respiratory Rate: 15 Pulse Rate: 78 Temperature: 97.5 F Mental Status: Alert & Oriented Pain level:: 0 Nausea and/or vomitting:: None Intake, IV Amount: 0 Hydration: Adequate
[2023-01-10 10:36] VITALS: BP 140/79; PULSE 78; RESP 15; TEMP 36.4; O2SAT 95
== END 2023-01-09 13:59 | disposition home or self-care (01) ==
PROVIDERS: PCP Family Medicine; Visit Provider Orthopaedic Surgery
PROC: (CPT 29805; principal; 2023-01-09 11:15)
DX: M75.111 Incomplete rotator cuff tear or rupture of right shoulder, not specified as traumatic (principal); M75.41 Impingement syndrome of right shoulder; M75.21 Bicipital tendinitis, right shoulder
CPT/HCPCS: 29827; 29828; 29826; 96374; J2405

== ENCOUNTER → 2023-02-28 23:21 | Outpatient (CLI) | payer OTHER, SELFPAY | PROVIDERS: PCP Nurse Practitioner Family; Visit Provider Nurse Practitioner Family | DX: N39.0 Urinary tract infection, site not specified (principal) | CPT/HCPCS: 87086 ==

== ENCOUNTER → 2023-05-24 09:12 | Outpatient (CLI) | payer OTHER, SELFPAY | LOC: LAB.DROPOF 05-25 09:13 | PROVIDERS: PCP Nurse Practitioner Family; Visit Provider Nurse Practitioner Family | DX: N39.0 Urinary tract infection, site not specified (principal) | CPT/HCPCS: 87086 ==

== ENCOUNTER 2023-06-01 13:19 | Emergency (ER) | payer OTHER, SELFPAY ==
[2023-06-01 13:20] VITALS: BP 122/81; PULSE 91; RESP 20; TEMP 36.6; O2SAT 97; BMI 26.9
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
--- NOTE | 2023-06-01 13:45 | XR_ITS ---
FINAL REPORT CLINICAL HISTORY: Right knee pain, acute on chronic COMPARISON: None FINDINGS: Three views of the right knee were obtained. There is no acute fracture or dislocation. The joint spaces are intact. There is a small joint effusion. There is no soft tissue abnormality. IMPRESSION: Small joint effusion without acute bony abnormality. Reviewed, Interpreted and Dictated by Will Ulloa MD Transcribed by Juanis Ann Authenticated and [facility]
[2023-06-01] MEDS: HYDROCODONE/APAP 5/325 MG TABLET 1 TAB PO (14:07)
[2023-06-01 14:29] LABS: Basophils # 0.1 K/mm3 (0-0.2); Basophils % 1.3 % (0.1-2.0); Eosinophils # 0.2 K/mm3 (0.0-0.4); Eosinophils % 2.8 % (0.1-12.0); Hematocrit 50.3 % (42.0-52.0); Lymphocytes # 1.4 K/mm3 (0.7-4.5); Lymphocytes % 25.9 % (10-50); Mean Corpuscular HGB Conc 33.9 g/dL (31.8-35.4); Mean Corpuscular Hemoglobin 29.8 pg (27.0-31.2); Monocytes # 0.6 K/mm3 (0.1-1.0); Monocytes % 10.6 % (1.7-9.3); Neutrophils # 3.3 K/mm3 (1.8-7.8); Neutrophils % 59.4 % (37.0-80.0); Platelet Count 206 K/mm3 (142-424); Red Blood Count 5.71 M/mm3 (4.60-6.20); Red Cell Distribution Width 13.6 % (11.5-17.5); White Blood Count 5.6 K/mm3 (4.8-10.8)
[2023-06-01 14:30] LABS: Alanine Aminotransferase 37 U/L (12-78); Albumin Level 4.2 g/dl (3.5-5.0); Albumin/Globulin Ratio 1.5 (1.1-1.8); Alkaline Phosphatase 73 U/L (38-126); Aspartate Amino Transferase 45 U/L (17-59); Bilirubin,Total 0.5 mg/dl (0.2-1.3); Blood Urea Nitrogen 20 mg/dl (9-20); Calcium 8.6 mg/dl (8.4-10.2); Carbon Dioxide 28 mmol/L (22.0-30.0); Chloride 105 mmol/L (98-107); Creatinine Clearance Estimated 132 mL/min (50-200); Estimated Glomerular Filt Rate 89 ml/min (>60); GFR (African American) 107 ML/MIN (>60); Globulin 2.8 g/dL (1.3-3.2); Glucose 93 mg/dl (74-100); Sodium 136 mmol/L (136-145)
[2023-06-01 15:08] LABS: Erythrocyte Sedimentation Rate 1 mm/hr (0-20)
[2023-06-01 15:58] VITALS: BP 133/77; PULSE 69; O2SAT 96
[2023-06-01 16:52] VITALS: BP 137/80; PULSE 73; RESP 20; TEMP 36.6; O2SAT 96
--- NOTE | 2023-06-01 16:54 | PC.NURSE ---
pt given set of crutches and ortho paper filled out
--- NOTE | 2023-06-04 10:21 | PC.NURSE ---
Accessed pt chart to complete ortho paper
== END 2023-06-01 16:54 | disposition home or self-care (01) ==
PROVIDERS: Emergency Provider Emergency Medicine; PCP Nurse Practitioner Family
DX: R01.1 Cardiac murmur, unspecified (principal); M25.561 Pain in right knee; F17.210 Nicotine dependence, cigarettes, uncomplicated
CPT/HCPCS: 73562; 80053; 85025; 85651; 99285

== ENCOUNTER 2023-06-29 15:23 | Outpatient (CLI) | payer OTHER, SELFPAY ==
--- NOTE | 2023-06-29 15:24 | MR_ITS ---
PROCEDURE INFORMATION: Exam: MR Right Lower Extremity Joint Without Contrast, Knee Exam date and time: 06/29/2023 3:42 PM Age: 52 years old Clinical indication: Pain; Knee; Right; Additional info: RT knee pain. Popped during injury x 2 weeks ago. Gives out TECHNIQUE: Imaging protocol: Magnetic resonance imaging of the right lower extremity joint without contrast. Exam focused on the knee. COMPARISON: CR XR KNEE RT 3V 06/01/2023 2:27 PM FINDINGS: Bones/joints: There is mild synovitis. There is edema of the medial tibial plateau and medial femoral condyle. Bursae: This is not a good location for a Grewal's cyst. Medial meniscus: There is a complex tear of the posterior horn of the medial meniscus which appears to demonstrate longitudinal and radial components. Lateral meniscus: Unremarkable. No tear. Anterior cruciate ligament: Unremarkable. No tear. Posterior cruciate ligament: Unremarkable. No tear. Medial capsule and supporting structures: Unremarkable. No tear. Lateral capsule and supporting structures: Unremarkable. No tear. Extensor mechanism of knee: Unremarkable. No tear. Soft tissues: There is a 1.6 cm fluid collection posterior to the lateral femoral metaphysis which may reflect a small ganglion. Small amount of periarticular fluid is present. IMPRESSION: Complex tear of the posterior horn of the medial meniscus.
== END 2023-06-29 23:59 ==
LOC: RAD 15:24
PROVIDERS: PCP Nurse Practitioner Family; Visit Provider Orthopaedic Surgery
DX: M25.561 Pain in right knee (principal)
CPT/HCPCS: 73721

== ENCOUNTER 2023-08-14 11:20 | Day surgery (SDC) | payer OTHER, SELFPAY ==
[2023-08-14] VITALS (9 sets, daily range): BP systolic 116–135; BP diastolic 70–86; PULSE 68–84; RESP 14–18; TEMP 36.2–36.7; O2SAT 97–100; BMI 26.7
--- NOTE | 2023-08-14 12:14 | ECG_ITS ---
APPROVED REPORT Exam: Resting ECG HR:74 bpm ECG Measurements Heart Rate 74 AXES MI 155 P 64 QRSd 96 QRS 37 QT 377 T 49 QTc 404 Conclusion SINUS RHYTHM NORMAL ECG UNCONFIRMED REPORT Electronically signed by : Lior Goncalves MD 08/15/2023 20:59:01
--- NOTE | 2023-08-14 12:18 | P.PNANES_ITS ---
[facility] Disclaimer: The information contained in this section may have been updated after the patient was seen, as this information can be updated by other users. Medical History Heart murmur Surgical History History of facial surgery History of shoulder surgery Family History Grandmother Family history of myocardial infarction Brother Family history of cancer Mother Family history of cancer Social History Smoking Status: Current every day smoker tobacco type: cigarettes packs per day: 1 second hand exposure: Yes alcohol intake: former substance use type: denies use current occupational status: disabled Travel in the last 8 weeks: None household members: significant other housing: house caffeine: Yes [facility] Anesthesia Checklist Patient Identification Patient Identification: Arm Band Structural Data Admitted From: Home Planned Operative Procedure/s: Right Knee Arthroscopy, Partial Medial Meniscectomy Consent for Planned Operative Procedure(s) Verified: Yes Verified Documents: Surgical Consent and History and Physical NPO Status Verified Time NPO: 00:00 Additional verifications Anesthesia Reactions: No Hx Blood Transfusions: No Blood Transfusion Reaction: No Airway Assessment Mallampati Score:: Class II C-Spine Mobility Assessed: Yes TMJ Mobility Assessed: Yes Dentition: Edentulous Neurological Assessment Level of Consciousness: Awake and Alert Anesthesia Plan Anesthesia Risk discussed: Yes Anesthesia Plan: Verified ASA Class: II Anesthesia Type: General
[2023-08-14 12:20] LABS: Basophils # 0.1 K/mm3 (0-0.2); Basophils % 1.7 % (0.1-2.0); Eosinophils # 0.2 K/mm3 (0.0-0.4); Eosinophils % 3.9 % (0.1-12.0); Hemoglobin 17.8 g/dL (14.1-18.0); Lymphocytes # 1.5 K/mm3 (0.7-4.5); Lymphocytes % 24.1 % (10-50); Mean Corpuscular HGB Conc 33.5 g/dL (31.8-35.4); Mean Corpuscular Hemoglobin 30.4 pg (27.0-31.2); Mean Corpuscular Volume 90.5 fl (80-94); Mean Platelet Volume 8.2 fl (7.4-10.4); Monocytes # 0.4 K/mm3 (0.1-1.0); Monocytes % 6.4 % (1.7-9.3); Neutrophils # 3.9 K/mm3 (1.8-7.8); Neutrophils % 63.9 % (37.0-80.0); Platelet Count 230 K/mm3 (142-424); Red Blood Count 5.86 M/mm3 (4.60-6.20); Red Cell Distribution Width 13.6 % (11.5-17.5); White Blood Count 6.1 K/mm3 (4.8-10.8)
[2023-08-14 12:25] LABS: Chloride 108 mmol/L (98-107); Potassium 4.4 mmoL/L (3.5-5.1); Sodium 140 mmol/L (136-145)
[2023-08-14 12:28] LABS: Alanine Aminotransferase 49 U/L (12-78); Albumin Level 4.3 g/dl (3.5-5.0); Albumin/Globulin Ratio 1.5 (1.1-1.8); Alkaline Phosphatase 84 U/L (38-126); Anion Gap 10.4 mEq/L (5-15); Aspartate Amino Transferase 43 U/L (17-59); Bilirubin,Total 0.5 mg/dl (0.2-1.3); Blood Urea Nitrogen 17 mg/dl (9-20); Carbon Dioxide 26 mmol/L (22.0-30.0); Creatinine Clearance Estimated 130 mL/min (50-200); Estimated Glomerular Filt Rate 88 ml/min (>60); GFR (African American) 107 ML/MIN (>60); Globulin 2.9 g/dL (1.3-3.2); Total Protein,Serum 7.2 g/dl (6.3-8.2)
[2023-08-14 12:29] LABS: Calcium 9.3 mg/dl (8.4-10.2); Glucose 109 mg/dl (74-100)
[2023-08-14] MEDS: CEFAZOLIN SODIUM 2 GM in 0.9 % SODIUM CHLORIDE 100 ML IV (13:11)
[2023-08-14] MEDS: ROPIVACAINE 0.5% 30ML VIAL 150 MG (13:12)
[2023-08-14] MEDS: RINGERS SOLUTION,LACTATED 6,000 ML 6000 ML IR (13:12)
[2023-08-14] MEDS: EPINEPHrine 0.1 MG/ML 10ML SYRINGE (CRASH CART) 1 MG (13:12)
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
--- NOTE | 2023-08-14 13:33 | EXP.ANES.I ---
[facility] Anesthesia Record Part I Anesthesia Record I Intake, IV Amount: 1,200 Hydration: Adequate Estimated blood loss (mL): 25 Urine output (mL): 0 Blood Products used (#): none Blood Pressure: 116/70 SaO2: 97 Pulse Rate: 68 Airway Patency: Patent Respiratory Rate: 14 Temperature: 97.3 F Patient is:: Awake and Stable Stable to PACU at:: 13:30
[2023-08-14] MEDS: KETOROLAC 30MG/ML VIAL 30 MG IV (13:42)
--- NOTE | 2023-08-15 14:05 | EXP.ANES.II ---
[facility] Anesthesia Record Part II Anesthesia Record Part II Discharge Time: 13:55 Destination: Surgical Day Care (OP Surgery) PACU nurse assessment reviewed?: Yes Patient Condition:: Good Anesthesia Complications:: None Swallowing reflex intact?: Yes Airway Patency: Patent Cyanosis?: No Blood Pressure: 126/86 SaO2: 99 Respiratory Rate: 17 Pulse Rate: 80 Temperature: 97.1 F Mental Status: Alert & Oriented Pain level:: 0 Nausea and/or vomitting:: None Intake, IV Amount: 0 Hydration: Adequate
[2023-08-15 14:06] VITALS: BP 126/86; PULSE 80; RESP 17; TEMP 36.2; O2SAT 99
== END 2023-08-14 14:20 | disposition home or self-care (01) ==
PROVIDERS: PCP Nurse Practitioner Family; Visit Provider Orthopaedic Surgery
PROC: (CPT 29870; principal; 2023-08-14 12:45)
DX: S83.241A Other tear of medial meniscus, current injury, right knee, initial encounter (principal); M25.561 Pain in right knee; M23.91 Unspecified internal derangement of right knee; F17.210 Nicotine dependence, cigarettes, uncomplicated
CPT/HCPCS: 29881; 71045; 80053; 85025; 93005; 96374

== ENCOUNTER 2023-11-13 06:51 | Day surgery (SDC) | payer OTHER, SELFPAY ==
[2023-11-13] VITALS (7 sets, daily range): BP systolic 123–143; BP diastolic 75–84; PULSE 57–65; RESP 16–18; TEMP 36.4–36.8; O2SAT 94–100; BMI 27.5
[2023-11-13] MEDS: CYCLOPENTOLATE 2% OPHTH SOLN 2ML BOTTLE OP (07:22)
[2023-11-13] MEDS: PHENYLEPHRINE 2.5% OPHTH SOLN 2ML OP (07:23)
[2023-11-13] MEDS: TETRACAINE 0.5% OPTH SOL 15ML OP (07:23)
[2023-11-13] MEDS: SODIUM CHLORIDE 0.9% 10ML FLUSH SYRINGE 10 ML IV ×2 (08:25→08:35)
[2023-11-13] MEDS: MIDAZOLAM 2MG/2ML VIAL 1 MG IV ×2 (08:25→08:35)
[2023-11-13] MEDS: TOBRAMYCIN/DEX OPTH SUSP 2.5ML OP (08:33)
[2023-11-13] MEDS: LIDOCAINE 1% PF 2ML AMPULE 2 ML IJ (08:33)
[2023-11-13] MEDS: TIMOLOL 0.5% OPTH SOLN 5ML OP (08:34)
--- NOTE | 2023-11-13 12:59 | HMH.PROCNOTE ---
[facility] Procedure Note Date: 11/13/23 Time: 12:59 Procedure Note:: Preoperative Diagnosis: Cataract combined NS Cortical Complex [Right] Eye Postop diagnosis: same Operation: Microscopic phacoemulsification with intraocular lens implant [Right Eye Specimen: None Blood Loss: None The patient was examined in the office with a complaint of poor vision in the [right] eye. The patient reports that this interferes with ADLs such as reading, watching TV and/or driving or the vision is like looking through a foggy haze and is very troubling. The patient was examined and found to have a visually significant cataract with best corrected vision of [20/400] by refraction and/or glare testing. Treatment options, risks and benefits were explained and the patient elected to have cataract surgery in an attempt to improve their vision. The patient had the eye anesthetized with topical tetracaine, the eye ways prepped and draped in the usual fashion for cataract surgery. A paracentesis and a temporal keratotomy were made. 0.2cc of 1% lidocaine PF was placed into the anterior chamber. And aqueous/viscoelastic exchange was done and a 360 degree capsulorexis was performed. Through hydrodissection and delineation with BSS on a cannula was done. The lens nucleus was phecoemulsified with CDE of [6.44]. Residual cortical material was removed using automated I&A The capsular bag was deepened with viscoelastica and a PCIOL was placed in the capsular bag with good centration and stability. Residual viscoelastic was removed using automated I&A. The keratotomy incision was hydrated with BSS on a cannula. The wound were checked and found to be water tight. IOP was checked digitally and adjusted as needed so as not to be too high. 1 drop of timolol 0.5%, ofloxacin, prednisolone acetate and ketorolac was instilled and eye shield taped over the eye. The patient was taken to recovery in good condition and will be seen postoperatively.
== END 2023-11-13 08:56 | disposition home or self-care (01) ==
PROVIDERS: PCP Nurse Practitioner Family; Visit Provider Ophthalmology
PROC: (CPT 66984; principal; 2023-11-13 08:30)
DX: H25.11 Age-related nuclear cataract, right eye (principal)
CPT/HCPCS: 66984; J2250; V2632

== ENCOUNTER → 2023-12-25 06:17 | Day surgery (SDC) | payer OTHER, SELFPAY ==
[2023-12-25 06:32] VITALS: BP 156/100; PULSE 82; RESP 18; TEMP 36.4; O2SAT 94; BMI 27.9
[2023-12-25] MEDS: CYCLOPENTOLATE 2% OPHTH SOLN 2ML BOTTLE OP ×3 (06:35→06:45)
[2023-12-25] MEDS: TETRACAINE 0.5% OPTH SOL 15ML OP ×3 (06:35→06:45)
[2023-12-25] MEDS: PHENYLEPHRINE 2.5% OPHTH SOLN 2ML OP ×3 (06:35→06:45)
[2023-12-25] MEDS: SODIUM CHLORIDE 0.9% 10ML FLUSH SYRINGE 10 ML IV ×2 (06:40→08:24)
[2023-12-25 08:15] VITALS: BP 129/74; PULSE 65; RESP 16; TEMP 36.9; O2SAT 98
[2023-12-25 08:20] VITALS: BP 129/84; PULSE 71; RESP 16; TEMP 36.9; O2SAT 96
[2023-12-25] MEDS: LIDOCAINE 1% PF 2ML AMPULE 2 ML IJ (08:20)
[2023-12-25] MEDS: TOBRAMYCIN/DEX OPTH SUSP 2.5ML OP (08:20)
[2023-12-25] MEDS: MIDAZOLAM 2MG/2ML VIAL 1 MG IV (08:20)
[2023-12-25] MEDS: TIMOLOL 0.5% OPTH SOLN 5ML OP (08:20)
[2023-12-25 08:25] VITALS: BP 131/87; PULSE 72; RESP 16; TEMP 36.9; O2SAT 97
[2023-12-25 08:30] VITALS: BP 133/90; PULSE 70; RESP 16; TEMP 36.9; O2SAT 97
[2023-12-25 08:47] VITALS: BP 149/86; PULSE 79; RESP 18; TEMP 36.5; O2SAT 97
--- NOTE | 2023-12-25 11:57 | HMH.PROCNOTE ---
[facility] Procedure Note Date: 12/25/23 Time: 11:57 Procedure Note:: Preoperative Diagnosis: Cataract combined NS Cortical Complex [Left] Eye Postop diagnosis: same Operation: Microscopic phacoemulsification with intraocular lens implant [Left] Eye Specimen: None Blood Loss: None The patient was examined in the office with a complaint of poor vision in the [left] eye. The patient reports that this interferes with ADLs such as reading, watching TV and/or driving or the vision is like looking through a foggy haze and is very troubling. The patient was examined and found to have a visually significant cataract with best corrected vision of [20/400] by refraction and/or glare testing. Treatment options, risks and benefits were explained and the patient elected to have cataract surgery in an attempt to improve their vision. The patient had the eye anesthetized with topical tetracaine, the eye ways prepped and draped in the usual fashion for cataract surgery. A paracentesis and a temporal keratotomy were made. 0.2cc of 1% lidocaine PF was placed into the anterior chamber. And aqueous/viscoelastic exchange was done and a 360 degree capsulorexis was performed. Through hydrodissection and delineation with BSS on a cannula was done. The lens nucleus was phecoemulsified with CDE of [4.29]. Residual cortical material was removed using automated I&A The capsular bag was deepened with viscoelastica and a PCIOL was placed in the capsular bag with good centration and stability. Residual viscoelastic was removed using automated I&A. The keratotomy incision was hydrated with BSS on a cannula. The wound were checked and found to be water tight. IOP was checked digitally and adjusted as needed so as not to be too high. 1 drop of timolol 0.5%, ofloxacin, prednisolone acetate and ketorolac was instilled and eye shield taped over the eye. The patient was taken to recovery in good condition and will be seen postoperatively.
== END | disposition home or self-care (01) ==
PROVIDERS: PCP Nurse Practitioner Family; Visit Provider Ophthalmology
PROC: (CPT 66984; principal; 2023-12-25 07:30)
DX: H25.12 Age-related nuclear cataract, left eye (principal)
CPT/HCPCS: 66984; J2250; V2632

== ENCOUNTER 2024-03-12 09:51 | Outpatient (CLI) | payer OTHER, SELFPAY ==
[2024-03-12 18:24] LABS: Coronavirus 19, PCR Not Detected (NotDetected); Influenza A, PCR Not Detected (NotDetected); Influenza B, PCR Not Detected (NotDetected)
[2024-03-12 19:11] LABS: Chol/HDL Ratio 5.2 (1-3.5); Cholesterol 213 mg/dl (140-200); HDL Cholesterol 41 mg/dl (40-60); Triglycerides 86 mg/dl (30-150); VLDL Cholesterol 17 mg/dL (0-40)
[2024-03-12 19:22] LABS: Direct LDL Cholesterol 143.23 mg/dL (100-129)
[2024-03-12 19:42] LABS: Prostate Specific Ag Screen 0.8 ng/ml (0.0-4.0); Thyroid Stimulating Hormone 1.95 uIU/mL (0.465-4.68)
== END 2024-03-12 23:59 | disposition home or self-care (01) ==
LOC: LAB.DROPOF 03-13 09:51
PROVIDERS: PCP Nurse Practitioner Family; Visit Provider Family Medicine
DX: R69 Illness, unspecified (principal); R53.83 Other fatigue; Z00.00 Encounter for general adult medical examination without abnormal findings
CPT/HCPCS: 80061; 84443; 87636; G0103

== ENCOUNTER 2024-07-16 14:53 | Outpatient (CLI) | payer OTHER, SELFPAY ==
--- NOTE | 2024-07-16 14:57 | XR_ITS ---
FINAL REPORT CLINICAL HISTORY: Cough, SOA COMPARISON: 01/03/2023 FINDINGS: CHEST 2 VIEWS: No acute pulmonary density is evident. There is no evidence of effusion or other pleural disease. The mediastinum has a normal appearance. There is evidence of old calcified granulomatous disease. The cardiac silhouette is unremarkable. IMPRESSION: Unremarkable chest exam. Reviewed, Interpreted and Dictated by Florian aCrtagena MD Transcribed by Kayleen Kapoor Authenticated and [facility]
[2024-07-16 15:37] LABS: Microscopic, Urine URINE MICROSCOPIC (MICROSCOPIC)
[2024-07-16 15:45] LABS: Basophils # 0.1 K/mm3 (0-0.2); Basophils % 0.4 % (0.1-2.0); Eosinophils # 0.1 K/mm3 (0.0-0.4); Eosinophils % 0.4 % (0.1-12.0); Hemoglobin 17.9 g/dL (14.1-18.0); Lymphocytes # 1.9 K/mm3 (0.7-4.5); Lymphocytes % 12.8 % (10-50); Mean Corpuscular HGB Conc 35.1 g/dL (31.8-35.4); Mean Corpuscular Hemoglobin 29.9 pg (27.0-31.2); Mean Corpuscular Volume 85.3 fl (80-94); Mean Platelet Volume 9.7 fl (7.4-10.4); Monocytes # 0.9 K/mm3 (0.1-1.0); Monocytes % 6.2 % (1.7-9.3); Neutrophils % 79.9 % (37.0-80.0); Platelet Count 269 K/mm3 (142-424); Red Blood Count 5.98 M/mm3 (4.60-6.20); Red Cell Distribution Width 12.8 % (11.5-17.5); White Blood Count 15.1 K/mm3 (4.8-10.8)
[2024-07-16 15:48] LABS: Appearance,Urine CLEAR (Clear); Bilirubin,Urine Negative (Negative); Blood, Urine Negative (Negative); Color,Urine YELLOW (Yellow); Glucose,Urine (UA) Negative (Negative); Ketones,Urine Negative (Negative); Leukocyte Esterase,Urine Negative (Negative); Nitrate,Urine Negative (Negative); PH,Urine 5.5 (5.0-8.5); Protein,Urine Negative (Negative); Specific Gravity, Urine >= 1.030 (1.005-1.030)
[2024-07-16 15:51] LABS: MANUAL DIFFERENTIAL MANUAL DIFFERENTIAL (MANUAL DIFF)
[2024-07-16 16:10] LABS: Lymphocytes % 14 % (10-50); Monocytes % 10 % (2-9); Neutrophils % 76 % (42-76); Total Cells Counted 100
[2024-07-16 16:11] LABS: Platelet Estimate Normal; RBC Morphology Normal
[2024-07-16 16:18] LABS: Calcium Oxalate Crystals,Urine 1+ /lpf; Mucus,Urine 2+ /lpf
[2024-07-16 16:25] LABS: Alanine Aminotransferase 55 U/L (12-78); Albumin Level 4.5 g/dl (3.5-5.0); Albumin/Globulin Ratio 1.7 (1.1-1.8); Alkaline Phosphatase 76 U/L (38-126); Anion Gap 15.1 mEq/L (5-15); Aspartate Amino Transferase 40 U/L (17-59); Bilirubin,Total 0.5 mg/dl (0.2-1.3); Blood Urea Nitrogen 22 mg/dl (9-20); Calcium 9.6 mg/dl (8.4-10.2); Carbon Dioxide 30 mmol/L (22.0-30.0); Chloride 100 mmol/L (98-107); Chol/HDL Ratio 7.6 (1-3.5); Cholesterol 214 mg/dl (140-200); Estimated Glomerular Filt Rate 78 ml/min (>60); GFR (African American) 95 ML/MIN (>60); Globulin 2.6 g/dL (1.3-3.2); Glucose 134 mg/dl (74-100); HDL Cholesterol 28 mg/dl (40-60); Potassium 4.1 mmoL/L (3.5-5.1); Sodium 141 mmol/L (136-145); Total Protein,Serum 7.1 g/dl (6.3-8.2); Triglycerides 275 mg/dl (30-150); VLDL Cholesterol 55 mg/dL (0-40)
[2024-07-16 16:36] LABS: Direct LDL Cholesterol 133.03 mg/dL (100-129)
[2024-07-16 16:40] LABS: 25-OH Vitamin D, Total 38.1 ng/mL (30-100)
[2024-07-16 16:54] LABS: Thyroid Stimulating Hormone 0.84 uIU/mL (0.465-4.68)
== END 2024-07-16 23:59 | disposition home or self-care (01) ==
LOC: LAB 14:54
PROVIDERS: PCP Nurse Practitioner Family; Visit Provider Nurse Practitioner Family
DX: R06.02 Shortness of breath (principal); J20.8 Acute bronchitis due to other specified organisms; B96.89 Other specified bacterial agents as the cause of diseases classified elsewhere; R31.9 Hematuria, unspecified; R40.0 Somnolence; Z68.29 Body mass index [BMI] 29.0-29.9, adult; E66.3 Overweight; F17.210 Nicotine dependence, cigarettes, uncomplicated
CPT/HCPCS: 36415; 71046; 80053; 80061; 81001; 82306; 84443; 85007; 85025; 85027

== ENCOUNTER 2024-08-13 10:39 | Outpatient (CLI) | payer OTHER, SELFPAY ==
[2024-08-13 18:32] LABS: Hep A Ab, IgM ND
[2024-08-13 19:10] LABS: Basophils # 0.1 K/mm3 (0-0.2); Eosinophils # 0.2 K/mm3 (0.0-0.4); Eosinophils % 2.6 % (0.1-12.0); Hematocrit 52.4 % (42.0-52.0); Hemoglobin 17.4 g/dL (14.1-18.0); Lymphocytes # 1.4 K/mm3 (0.7-4.5); Lymphocytes % 22.2 % (10-50); Mean Corpuscular HGB Conc 33.2 g/dL (31.8-35.4); Mean Corpuscular Hemoglobin 29.3 pg (27.0-31.2); Mean Corpuscular Volume 88.4 fl (80-94); Mean Platelet Volume 9.7 fl (7.4-10.4); Monocytes # 0.5 K/mm3 (0.1-1.0); Neutrophils # 4.1 K/mm3 (1.8-7.8); Neutrophils % 65.7 % (37.0-80.0); Platelet Count 261 K/mm3 (142-424); Red Blood Count 5.93 M/mm3 (4.60-6.20); Red Cell Distribution Width 13.1 % (11.5-17.5); White Blood Count 6.2 K/mm3 (4.8-10.8)
[2024-08-13 20:17] LABS: Alanine Aminotransferase 44 U/L (12-78); Albumin Level 4.6 g/dl (3.5-5.0); Albumin/Globulin Ratio 1.8 (1.1-1.8); Alkaline Phosphatase 82 U/L (38-126); Anion Gap 14.3 mEq/L (5-15); Aspartate Amino Transferase 42 U/L (17-59); Bilirubin,Total 0.5 mg/dl (0.2-1.3); Blood Urea Nitrogen 15 mg/dl (9-20); Calcium 9.4 mg/dl (8.4-10.2); Carbon Dioxide 21 mmol/L (22.0-30.0); Chloride 111 mmol/L (98-107); Estimated Glomerular Filt Rate 88 ml/min (>60); GFR (African American) 106 ML/MIN (>60); Globulin 2.5 g/dL (1.3-3.2); Glucose 97 mg/dl (74-100); Potassium 4.3 mmoL/L (3.5-5.1); Sodium 142 mmol/L (136-145); Total Protein,Serum 7.1 g/dl (6.3-8.2)
[2024-08-13 21:07] LABS: Hepatitis C Ab Qual. W/ RFX REACTIVE (Negative)
[2024-08-13 21:12] LABS: HIV Combo NEGATIVE (Negative)
[2024-08-15 08:13] LABS: Hep A Ab, Total Negative (Negative); Hep B Core Ab, Total Negative (Negative); Hep B Surface Ab, Qual Non Reactive (.); Hepatitis B Surface Antigen Negative (Negative)
[2024-08-17 21:09] LABS: Hepatitis C Genotype 1a (.)
== END 2024-08-13 23:59 | disposition home or self-care (01) ==
LOC: LAB.DROPOF 08-14 11:03
PROVIDERS: PCP Nurse Practitioner Family; Visit Provider Nurse Practitioner Family
DX: R31.9 Hematuria, unspecified (principal); F41.9 Anxiety disorder, unspecified; Z11.4 Encounter for screening for human immunodeficiency virus [HIV]; Z11.59 Encounter for screening for other viral diseases
CPT/HCPCS: 80053; 85025; 86704; 86706; 86708; 86709; 86803; 87340; 87389; 87522; 87902

== ENCOUNTER 2024-12-26 07:06 | Outpatient (CLI) | payer OTHER, SELFPAY ==
--- NOTE | 2024-12-26 07:00 | CT_ITS ---
FINAL REPORT TECHNIQUE: Axial CT without IV contrast administration using low dose protocol. This study was performed with techniques to keep radiation doses as low as reasonably achievable, (ALARA). Individualized dose reduction techniques using automated exposure control or adjustment of mA and/or kV according to the patient's size were employed. CLINICAL HISTORY: Lung cancer screening Smoker 1 ppd x 40 years, 67-mlit-nucc history COMPARISON: None FINDINGS: CT CHEST LOW DOSE SCREENING DOSE: CTDI vol: 2.90 mGy, DLP: 108.38 mGy*cm No acute lung disease is present. No pulmonary lesions are seen suspicious for neoplasm. There is evidence of old calcified granulomatous disease. No pleural or pericardial effusion is seen. No adenopathy or mass lesion is present. IMPRESSION: No evidence of lung cancer LUNG RADS CATEGORY 1 RECOMMENDATION: 12-month LDCT follow up Reviewed, Interpreted and Dictated by Florian Cartagena MD Transcribed by Adrienne Ambrosio Authenticated and [facility]
== END 2024-12-26 23:59 | disposition home or self-care (01) ==
LOC: RAD 07:07
PROVIDERS: PCP Nurse Practitioner Family; Visit Provider Nurse Practitioner Family
DX: Z12.2 Encounter for screening for malignant neoplasm of respiratory organs (principal); F17.210 Nicotine dependence, cigarettes, uncomplicated
CPT/HCPCS: 71271